=== PATIENT | female | born 1995 | race Caucasian/White ===

== ENCOUNTER 2017-05-08 16:45 | Emergency (ER) | payer SELFPAY ==
[~2017-05-08] VITALS: Ht 162.6 cm; Wt 50.0 kg
[2017-05-08 16:47] VITALS: BP 97/64
== END 2017-05-08 21:25 | disposition left against medical advice (07) ==
LOC: ER 16:56
DX: R10.9 Unspecified abdominal pain (principal); Z53.21 Procedure and treatment not carried out due to patient leaving prior to being seen by health care provider

== ENCOUNTER 2017-10-28 14:09 | Emergency (ER) | payer SELFPAY ==
[~2017-10-28] VITALS: Ht 160 cm; Wt 60.0 kg
[2017-10-28 14:12] VITALS: BP 111/72
== END 2017-10-28 20:24 | disposition left against medical advice (07) ==
LOC: ER 15:18
DX: N89.8 Other specified noninflammatory disorders of vagina (principal); Z53.21 Procedure and treatment not carried out due to patient leaving prior to being seen by health care provider

== ENCOUNTER 2020-02-20 17:03 | Emergency (ER) | payer MEDICAID ==
[~2020-02-20] VITALS: Ht 149.9 cm; Wt 54.0 kg
[2020-02-20] MEDS ORDERED: TETANUS, DIPHTHERIA, PERTUSSIS VAC/PF 0.5ML (>7YR OLD) IM ONE (18:00)
[2020-02-20 18:33] VITALS: BP 123/85
== END 2020-02-20 18:34 | disposition home or self-care (01) ==
LOC: ER 17:03
DX: S41.151A Open bite of right upper arm, initial encounter (principal); R03.0 Elevated blood-pressure reading, without diagnosis of hypertension; W54.0XXA Bitten by dog, initial encounter; Z23 Encounter for immunization; Y93.K1 Activity, walking an animal; Y92.89 Other specified places as the place of occurrence of the external cause
CPT/HCPCS: 90471; 90715; 99283